=== PATIENT | male | born 1965 | race Caucasian/White ===

== ENCOUNTER 2016-08-20 03:02 | Emergency (ER) | payer OTHER ==
--- NOTE | 2016-08-20 03:57 | ED CLINICAL REPORT ---
Clinical Report - Physicians/Mid Levels [facility] [address] [place] [address] 08/20/2016 3:04 Patient: ALEXANDER ULRICH Time Seen: 03:11; initial patient contact. Arrived- By private vehicle. Historian- patient. HISTORY OF PRESENT ILLNESS Chief Complaint: NECK PAIN. Onset- about 2 days ago and it is still present. It was abrupt in onset and has been constant. It is described as being moderate in degree and in the area of the left trapezius, left side of the cervical spine, right side of the cervical spine and right trapezius. The quality is noted to be "pain". No radiation. Modifying factors- worsened by rotation of the head to the right or left or neck flexion. Relieved by remaining still. No bladder dysfunction, bowel dysfunction, sensory loss or motor loss. Patient notes the possibility of an injury but denies injury to the head or chest. Mechanism of injury- he was lifting. Occurred at home. Similar symptoms previously: None. Recent medical care: The patient was seen recently in the office. ( By a chiropracter. X rays showed DJD). REVIEW OF SYSTEMS No headache, difficulty with urination, numbness or weakness. He has had neck pain. All systems otherwise negative, except as recorded above. PAST HISTORY Hypercholesterolemia. Gout. Hypertension. Surgeries: No history of previous surgery. Additional Surgeries: no known surgeries. Medications: Atorvastatin Calcium Oral. Allopurinol Oral. Lisinopril Oral. Zetia Oral. Allergies: Penicillins. SOCIAL HISTORY Never smoker. Regular alcohol use. No drug use. ADDITIONAL NOTES The nursing notes have been reviewed with agreement regarding the chief complaint, PMH and patient medications and allergies. PHYSICAL EXAM Vital Signs: 08/20/2016 03:11 BP: 138/98. HR: 55. RR: 14. O2 saturation: 99%. Temp: 97.7 F. Have been reviewed. Hypertensive. Bradycardic. Respiratory rate normal. Temperature normal. Oxygen saturation normal. Appearance: Alert. No acute distress. Neck: Moderate pain in the entire posterior neck upon turning the head to the right, turning the head to the left, flexing the neck and extending the neck. Moderate muscle spasm of the right and left posterior neck. Moderate acute decrease in ROM secondary to pain. No vertebral tenderness. Soft tissue tenderness in the right upper, mid and lower neck area and left upper, mid and lower neck area. No meningeal signs. Skin: Skin warm and dry. Normal skin color. No rash. Neuro: Oriented X 3. Mood/affect normal. No motor deficit. No sensory deficit. Reflexes normal. PROGRESS AND PROCEDURES Course of Care: Diazepam 10 mg IM given. Physical exam findings are improved. Symptoms much better. Disposition: Discharged home in good and improved condition. Condition: good. CLINICAL IMPRESSION Acute cervical strain. INSTRUCTIONS No lifting greater than 10 lbs until released. Do not work today. Warnings: SEDATIVE MEDICATION: You were given sedative medication during your visit. Do not drive or operate dangerous machinery for 8 hours. Your Current Medications: CONTINUE TAKING THE FOLLOWING MEDICATIONS: Allopurinol Oral. Atorvastatin Calcium Oral. Lisinopril Oral. Zetia Oral. Prescription Medications: Baclofen 20 mg: take 1 orally every 8 hours. Dispense thirty (30). No refills. Follow-up: Follow up with your doctor in about four days. Call for an appointment. Blood pressure screening was not performed during this visit because the patient has an active diagnosis of hypertension. (Electronically signed by Cr Calderon Dr. 08/20/2016 3:57)
--- NOTE | 2016-08-20 03:57 | ED NURSING NOTES ---
Clinical Report - Nurses [facility] [address] [place] [address] 08/20/2016 3:04 Patient: ALEXANDER ULRICH TRIAGE Triage time 0311. Acuity: LEVEL 4. Chief Complaint: (neck pain). --03:20 Ronnie Davila R.N. 03:11 08/20/16. BP: 138/98. HR: 55. RR: 14. O2 saturation: 99%. Temp: 97.7 F. Pain level now 0/10. --03:20 Ronnie Davila R.N. Weight: 86.1 kg stated. Height/Length: 68 inches Per Patient. BMI: 28.9. --03:17 Ronnie Davila R.N. Medications Zetia Oral. --03:13 Ronnie Davila R.N. Lisinopril Oral. --03:14 Ronnie Davila R.N. Allopurinol Oral. --03:14 Ronnie Davila R.N. Atorvastatin Calcium Oral. --03:17 Ronnie Davila R.N. Allergies Penicillins. --03:15 Ronnie Davila R.N. History Arrived by private vehicle. Historian: patient. Accompanied by family. Location of injuries: neck. This occurred (wednesday). Occurred at home. ( pt at home doing sit ups and sudden onset neck pain.). 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 Trauma activation: Pre-hospital notification of patient arrival was not received. 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 SOCIAL HX: Never smoker. Alcohol use; consumes four beers. No drug use. FALL RISK ASSESSMENT: Fall risk assessment completed. No fall risk identified. NUTRITIONAL RISK ASSESSMENT: The nutritional risk assessment revealed no deficiencies. FUNCTIONAL ASSESSMENT: Functional assessment: no impairments noted. LEARNING NEEDS ASSESSMENT: The learning needs assessment revealed no barriers. SKIN INTEGRITY ASSESSMENT: Skin integrity risk assessment completed. No skin integrity risk identified. --03:20 Ronnie Davila R.N. PROBLEMS: Hypercholesterolemia. Gout. Hypertension. --03:15 Ronnie Davila R.N. Interventions ID band on patient. --03:20 Ronnie Davila R.N. PHYSICAL ASSESSMENT Ambulatory to room. GENERAL / NEURO / PSYCH: Alert. Oriented X 4. Appears in pain. HEENT: Pupils equal, round and reactive to light. Head non-tender. Neck. ( pain in bilat neck, unable to turn head or touch ears to shoulders bilat). RESPIRATORY: Respirations not labored. Chest nontender. Breath sounds within normal limits. CVS: Normal heart rate and rhythm. Pulses within normal limits. Capillary refill less than 2 seconds. GI / : Abdomen soft and nontender. EXTREMITIES: Extremities exhibit normal ROM. Neuro-vascular status intact to the extremity. SKIN: Skin intact. Skin is warm and dry. --03:21 Ronnie Davila R.N. NURSING PROGRESS NOTES Patient gowned. Reassurance given. Patient identifiers checked. Call light placed in reach. Bed placed in lowest position. Brakes of bed on. --03:22 Ronnie Davila R.N. 03:28 08/20/2016 Diazepam (Diazepam) IM 10 mg given. Given in the right deltoid. Allergies verified, confirmed 5 rights and sedative warning given to the patient and patient's dopeman. --03:28 Ronnie Davila R.N. DISPOSITION / DISCHARGE Departure time: 0355. No learning barriers present. Discharge instructions provided and reviewed with the patient and spouse. Reviewed warnings. Reviewed medication(s). Treatments reviewed. Reviewed referrals. Activity restrictions reviewed. Work note given. Patient and spouse verbalized understanding. Written instructions provided in Armenian. The patient was discharged by the physician. He was discharged home and accompanied by spouse. He left the Emergency Department ambulatory and via private vehicle. Spouse driving. --03:59 Ronnie Davila R.N. 03:59 08/20/16. BP: 154/98. HR: 55. RR: 14. O2 saturation: 99%. Temp: 98 F. Pain level now 0/10. --03:59 Ronnie Davila R.N. Locked/Released at 08/20/2016 4:00 by Ronnie Davila R.N.
--- NOTE | 2016-08-20 03:57 | ED NURSING NOTES ---
Clinical Report - Nurses [facility] [address] [place] [address] 08/20/2016 3:04 Patient: ALEXANDER ULRICH TRIAGE Triage time 0311. Acuity: LEVEL 4. Chief Complaint: (neck pain). --03:20 Ronnie Davila R.N. 03:11 08/20/16. BP: 138/98. HR: 55. RR: 14. O2 saturation: 99%. Temp: 97.7 F. Pain level now 0/10. --03:20 Ronnie Davila R.N. Weight: 86.1 kg stated. Height/Length: 68 inches Per Patient. BMI: 28.9. --03:17 Ronnie Davila R.N. Medications Zetia Oral. --03:13 Ronnie Davila R.N. Lisinopril Oral. --03:14 Ronnie Davila R.N. Allopurinol Oral. --03:14 Ronnie Davila R.N. Atorvastatin Calcium Oral. --03:17 Ronnie Davila R.N. Allergies Penicillins. --03:15 Ronnie Davila R.N. History Arrived by private vehicle. Historian: patient. Accompanied by family. Location of injuries: neck. This occurred (wednesday). Occurred at home. ( pt at home doing sit ups and sudden onset neck pain.). 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 Trauma activation: Pre-hospital notification of patient arrival was not received. 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 SOCIAL HX: Never smoker. Alcohol use; consumes four beers. No drug use. FALL RISK ASSESSMENT: Fall risk assessment completed. No fall risk identified. NUTRITIONAL RISK ASSESSMENT: The nutritional risk assessment revealed no deficiencies. FUNCTIONAL ASSESSMENT: Functional assessment: no impairments noted. LEARNING NEEDS ASSESSMENT: The learning needs assessment revealed no barriers. SKIN INTEGRITY ASSESSMENT: Skin integrity risk assessment completed. No skin integrity risk identified. --03:20 Ronnie Davila R.N. PROBLEMS: Hypercholesterolemia. Gout. Hypertension. --03:15 Ronnie Davila R.N. Interventions ID band on patient. --03:20 Ronnie Davila R.N. PHYSICAL ASSESSMENT Ambulatory to room. GENERAL / NEURO / PSYCH: Alert. Oriented X 4. Appears in pain. HEENT: Pupils equal, round and reactive to light. Head non-tender. Neck. ( pain in bilat neck, unable to turn head or touch ears to shoulders bilat). RESPIRATORY: Respirations not labored. Chest nontender. Breath sounds within normal limits. CVS: Normal heart rate and rhythm. Pulses within normal limits. Capillary refill less than 2 seconds. GI / : Abdomen soft and nontender. EXTREMITIES: Extremities exhibit normal ROM. Neuro-vascular status intact to the extremity. SKIN: Skin intact. Skin is warm and dry. --03:21 Ronnie Davila R.N. NURSING PROGRESS NOTES Patient gowned. Reassurance given. Patient identifiers checked. Call light placed in reach. Bed placed in lowest position. Brakes of bed on. --03:22 Ronnie Davila R.N. 03:28 08/20/2016 Diazepam (Diazepam) IM 10 mg given. Given in the right deltoid. Allergies verified, confirmed 5 rights and sedative warning given to the patient and patient's resident physician in radiology. --03:28 Ronnie Davila R.N. DISPOSITION / DISCHARGE Departure time: 0355. No learning barriers present. Discharge instructions provided and reviewed with the patient and spouse. Reviewed warnings. Reviewed medication(s). Treatments reviewed. Reviewed referrals. Activity restrictions reviewed. Work note given. Patient and spouse verbalized understanding. Written instructions provided in French. The patient was discharged by the physician. He was discharged home and accompanied by spouse. He left the Emergency Department ambulatory and via private vehicle. Spouse driving. --03:59 Ronnie Davila R.N. 03:59 08/20/16. BP: 154/98. HR: 55. RR: 14. O2 saturation: 99%. Temp: 98 F. Pain level now 0/10. --03:59 Ronnie Davila R.N. Locked/Released at 08/20/2016 4:00 by Ronnie Davila R.N.
--- NOTE | 2016-08-20 03:57 | ED ORDER SUMMARY ---
..... Patient: ALEXANDER ULRICH OrderSheet [facility] VisitID: [id number] [address] [place] [address] 50y, M Registration Date/Time: 08/20/2016 ORDER SHEET Weight: 86.1 kg (stated) Allergies: Penicillins GENERAL ORDERS: MEDICATION ORDERS: Diazepam IM 10 mg (HIGH ALERT MEDICATION, NOW) (03:26 08/20/2016 Cabrera Robin) (3:28 Valeriano Herrera) IV FLUIDS: ORDER SHEET NOTES: [Electronically signed by Cr Calderon Dr. (03:57 08/20/2016)] [Electronically signed by Ronnie Davila R.N. (04:00 08/20/2016)] [Electronically locked/signed by Ronnie Davila R.N. (04:00 08/20/2016)]
--- NOTE | 2016-08-20 03:57 | ED ORDER SUMMARY ---
..... Patient: ALEXANDER ULRICH OrderSheet [facility] VisitID: [id number] [address] [place] [address] 50y, M Registration Date/Time: 08/20/2016 ORDER SHEET Weight: 86.1 kg (stated) Allergies: Penicillins GENERAL ORDERS: MEDICATION ORDERS: Diazepam IM 10 mg (HIGH ALERT MEDICATION, NOW) (03:26 08/20/2016 Cabrera Robin) (3:28 Valeriano Herrera) IV FLUIDS: ORDER SHEET NOTES: [Electronically signed by Cr Calderon Dr. (03:57 08/20/2016)] [Electronically signed by Ronnie Davila R.N. (04:00 08/20/2016)] [Electronically locked/signed by Ronnie Davila R.N. (04:00 08/20/2016)]
--- NOTE | 2016-08-20 04:00 | ED DISCHARGE INSTRUCTIONS ---
Patient: ALEXANDER ULRICH General Instructions [facility] VisitID: [id number] [place] [address] 50y, M Registration Date/Time: 08/20/2016 Acute cervical strain. INSTRUCTIONS No lifting greater than 10 lbs until released. Do not work today. Warnings: SEDATIVE MEDICATION: You were given sedative medication during your visit. Do not drive or operate dangerous machinery for 8 hours. Your Current Medications: CONTINUE TAKING THE FOLLOWING MEDICATIONS: Allopurinol Oral. Atorvastatin Calcium Oral. Lisinopril Oral. Zetia Oral. Prescription Medications: Baclofen 20 mg: take 1 orally every 8 hours. Dispense thirty (30). No refills. Follow-up: Follow up with your doctor in about four days. Call for an appointment. Blood pressure screening was not performed during this visit because the patient has an active diagnosis of hypertension. ADDITIONAL INFORMATION Neck Sprain Or Strain A sudden force that causes turning or bending of the neck (such as in a car accident) can stretch or tear muscles (strain) and ligaments (sprain) and cause neck pain. Sometimes neck pain occurs after a simple awkward movement. In either case, muscle spasm is commonly present and contributes to the pain. Unless you had a forceful physical injury (for example, a car accident or fall), X-rays are usually not ordered for the initial evaluation of neck pain. If pain continues and dose not respond to medical treatment, X-rays and other tests may be performed at a later time. Home care The following guidelines will help you care for your injury at home: You may feel more soreness and spasm the first few days after the injury. Reduce your activity level until symptoms begin to improve. When lying down, use a comfortable pillow that supports the head and keeps the spine in a neutral position. The position of the head should not be tilted forward or backward. Use ice packs (ice in a plastic bag, wrapped in a towel) to treat acute pain. Apply for 20 minutes every 24 hours during the first two days. Then, begin local heat (hot shower, hot bath or heating pad) andmassageto reduce muscle spasm. Some patients feel best alternating hot and cold treatments, or just staying with one method only. Do what feels the best to you and gives the most relief. You may use acetaminophen or ibuprofen to control pain, unless another pain medicine was prescribed.If you have chronic liver or kidney disease or ever had a stomach ulcer or GI bleeding, talk with your doctor before using these medicines. Follow-up care Follow up with your physician or this facility if your symptoms do not show signs of improvement. Physical therapy may be needed. If you had X-rays today, they didnt show any broken bones, breaks, or fractures. Sometimes fractures dont show up on the first X-ray. Bruises and sprains can sometimes hurt as much as a fracture. These injuries can take time to heal completely. If your symptoms dont improve or they get worse, talk with your doctor. You may need a repeat X-ray. When to seek medical care Get prompt medical attention if any of the following occur: Pain becomes worse or spreads into your arms Weakness or numbness in one or both arms You have been given the following additional information: Neck Sprain/Strain No lifting greater than 10 lbs until released. Do not work today. (Electronically signed by Cr Calderon Dr. 08/20/2016 3:57)
--- NOTE | 2016-08-20 04:00 | ED MAR SUMMARY ---
..... Medication Administration Record [facility] [address] [place] [address] Patient: ALEXANDER ULRICH Visit ID: [id number] 50y, M Weight: 86.1 kg Height/Length: 68 in BMI: 28.9 ALLERGIES: Penicillins Given 03:28 08/20/2016 Ronnie Davila R.N. Medication Administered: DIAZEPAM [IM] (DIAZEPAM), Dose: 10 mg IM. Medication Ordered: Diazepam IM 10 mg (HIGH ALERT MEDICATION, NOW).
--- NOTE | 2016-08-20 04:00 | ED MED RECONCILIATION SUMMARY ---
Patient: ALEXANDER LURICH Medication Reconciliation Report [facility] VisitID: [id number] [address] [place] [address] 50y, M Registration Date/Time: 08/20/2016 Weight: 86.1 kg Height/Length: 68 in. BMI: 28.9 ALLERGIES: Penicillins The patient's Home Medications are listed below: CONTINUE TAKING THE FOLLOWING MEDICATIONS: Allopurinol Oral Atorvastatin Calcium Oral Lisinopril Oral Zetia Oral The source(s) of the original Home Medication information: Not obtained. The following Medications were given to the patient in the Emergency Department: Diazepam [IM] IM 10 mg, administered: 08/20/2016 3:28:00 AM The following Medications were prescribed to the patient: Baclofen 20 mg: take 1 orally every 8 hours. Dispense thirty (30). No refills. -- Cr Calderon Dr.
--- NOTE | 2016-08-20 04:00 | ED MAR SUMMARY ---
..... Medication Administration Record [facility] [address] [place] [address] Patient: ALEXANDER ULRICH Visit ID: [id number] 50y, M Weight: 86.1 kg Height/Length: 68 in BMI: 28.9 ALLERGIES: Penicillins Given 03:28 08/20/2016 Ronnie Davila R.N. Medication Administered: DIAZEPAM [IM] (DIAZEPAM), Dose: 10 mg IM. Medication Ordered: Diazepam IM 10 mg (HIGH ALERT MEDICATION, NOW).
--- NOTE | 2016-08-20 04:00 | ED MED RECONCILIATION SUMMARY ---
Patient: ALEXANDER ULRICH Medication Reconciliation Report [facility] VisitID: [id number] [address] [place] [address] 50y, M Registration Date/Time: 08/20/2016 Weight: 86.1 kg Height/Length: 68 in. BMI: 28.9 ALLERGIES: Penicillins The patient's Home Medications are listed below: CONTINUE TAKING THE FOLLOWING MEDICATIONS: Allopurinol Oral Atorvastatin Calcium Oral Lisinopril Oral Zetia Oral The source(s) of the original Home Medication information: Not obtained. The following Medications were given to the patient in the Emergency Department: Diazepam [IM] IM 10 mg, administered: 08/20/2016 3:28:00 AM The following Medications were prescribed to the patient: Baclofen 20 mg: take 1 orally every 8 hours. Dispense thirty (30). No refills. -- Cr Calderon Dr.
== END 2016-08-20 03:58 | disposition home or self-care (01) ==
LOC: ED SRH 03:02
DX: S16.1XXA Strain of muscle, fascia and tendon at neck level, initial encounter (principal); X50.9XXA Other and unspecified overexertion or strenuous movements or postures, initial encounter; Y93.9 Activity, unspecified; Y92.009 Unspecified place in unspecified non-institutional (private) residence as the place of occurrence of the external cause; Y99.9 Unspecified external cause status; I10 Essential (primary) hypertension; Z79.899 Other long term (current) drug therapy; Z88.2 Allergy status to sulfonamides